=== PATIENT | male | born 1995 | race Native Hawaiian/Other Pacific Islander ===

== ENCOUNTER 2016-09-08 22:52 | Emergency (ER) | payer SELFPAY ==
[~2016-09-08] VITALS: Ht 172.7 cm; Wt 78.0 kg
[2016-09-08 22:54] VITALS: BP 135/84; PULSE 104; RESP 15; TEMP 97.9; O2SAT 98
[2016-09-09 00:55] VITALS: BP 124/84; PULSE 92; RESP 18; O2SAT 99
[2016-09-09 02:11] VITALS: O2SAT 99
[2016-09-09] MEDS ORDERED: SODIUM CHLORIDE 0.9% FLUSH 10 ML FLUSH IVF PRN (02:15)
[2016-09-09] MEDS ORDERED: MORPHINE SULFATE 4 MG/ML INJ IV PUSH ONE (02:15)
[2016-09-09 02:22] LABS: AUTOMATED NEUTROPHIL # 5.5 TH/MM3 (1.8-7.7); BASOPHIL % 0.3 % (0.0-2.0); EOSINOPHIL # 0.2 TH/MM3 (0-0.4); HEMATOCRIT 44.1 % (39.0-51.0); HEMO FLAGS DIFF FINAL; LYMPH % 30.9 % (9.0-44.0); LYMPHOCYTE # 2.9 TH/MM3 (1.0-4.8); MEAN CELL VOLUME 81.8 FL (80.0-100.0); MEAN CORPUSCULAR HEMOGLOBIN 27.9 PG (27.0-34.0); MEAN CORPUSCULAR HGB CONC 34.1 % (32.0-36.0); MONO % 8.1 % (0.0-8.0); NEUT % 58.7 % (16.0-70.0); PLATELET COUNT 297 TH/MM3 (150-450); RED BLOOD COUNT 5.39 MIL/MM3 (4.50-5.90); RED CELL DISTRIBUTION WIDTH 13.3 % (11.6-17.2); WHITE BLOOD COUNT 9.3 TH/MM3 (4.0-11.0)
[2016-09-09 02:45] LABS: ANION GAP 6 MEQ/L (5-15); BICARBONATE 28.2 MEQ/L (21.0-32.0); BLOOD UREA NITROGEN 12 MG/DL (7-18); CHLORIDE 110 MEQ/L (98-107); CREATINE KINASE 84 U/L (39-308); GLOMERULAR FILTRATION RATE 112 ML/MIN (>89); MAGNESIUM 2.2 MG/DL (1.5-2.5); SODIUM (NA) 144 MEQ/L (136-145)
--- NOTE | 2016-09-09 02:54 | RADRPT ---
EXAM DATE/TIME: 09/09/2016 02:25 [place] COMPARISON: No previous studies available for comparison. INDICATIONS : Chest pain. MEDICAL HISTORY : None. SURGICAL HISTORY : None. ENCOUNTER: Initial ACUITY: 1 day PAIN SCORE: 3/10 LOCATION: Bilateral middle chest FINDINGS: A single view of the chest demonstrates the lungs to be symmetrically aerated without evidence of mas s, infiltrate or effusion. The cardiomediastinal contours are unremarkable. Osseous structures are intact. CONCLUSION: No acute disease. Blair Rock MD on September 09, 2016 at 2:53 Board Certified Radiologist. This report was verified electronically.
[2016-09-09] MEDS ORDERED: HYDR-3533 PO (03:33)
--- NOTE | 2016-09-09 03:34 | PD ---
HPI Chief Complaint: Chest Pain Time Seen by Provider: 01:40 Travel History International Travel<30 days: No Contact w/Intl Traveler<30days: No Traveled to known affect area: No History of Present Illness HPI The patient's 20 years old. He arrives with chest pain in the left side. It has been present for 3 days. The onset was gradual arrest. It was intermittent initially. It has been gradually worsening. He reports a cough with phlegm production. He's had no fever. He denies a history of DVT. 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 The pain is present at rest. There is no pleuritic component. He states the severity is 9/10. He has no family history of early onset coronary artery disease or structural heart disease. He reports similar episodes when he was much younger which occurred only very rarely perhaps once every 3 years. He has no past medical history area and he reports a surgical history of tonsillectomy/adenoidectomy [facility] Past Medical History Medical History: Denies Significant Hx Diminished Hearing: No Tetanus Vaccination: Unknown Past Surgical History Eye Surgery: Yes (lasik eye sx) Tonsillectomy: Yes (adnoids) Social History Alcohol Use: No Tobacco Use: Yes (1 ppd) Substance Use: No Allergies-Medications (Allergen,Severity, Reaction): Coded Allergies: No Known Allergies (Unverified , 09/08/16) Reported Meds & Prescriptions Reported Meds & Active Scripts Active No Active Prescriptions or Reported Medications Review of Systems Except as stated in HPI: all other systems reviewed are Neg General / Constitutional: No: Fever Cardiovascular: Positive: Chest Pain or Discomfort Respiratory: Positive: Cough, No: Shortness of Breath Physical Exam Narrative GENERAL: 20-year-old male pleasant no acute distress SKIN: Warm and dry. HEAD: Atraumatic. Normocephalic. EYES: Pupils equal and round. No scleral icterus. No injection or drainage. ENT: No nasal bleeding or discharge. Mucous membranes pink and moist. NECK: Trachea midline. No JVD. CARDIOVASCULAR: Regular rate and rhythm. No murmur appreciated. RESPIRATORY: No accessory muscle use. Clear to auscultation. Breath sounds equal bilaterally. GASTROINTESTINAL: Abdomen soft, non-tender, nondistended. Hepatic and splenic margins not palpable. MUSCULOSKELETAL: No obvious deformities. No clubbing. No cyanosis. No edema. NEUROLOGICAL: Awake and alert. No obvious cranial nerve deficits. Motor grossly within normal limits. Normal speech. PSYCHIATRIC: Appropriate mood and affect; insight and judgment normal. Data Data Last Documented VS Vital Signs Date Time Temp Pulse Resp B/P Pulse Ox O2 Delivery O2 Flow Rate FiO2 09/09/16 02:11 99 09/09/16 02:11 Room Air 09/09/16 00:55 92 18 124/84 09/08/16 22:54 97.9 Vital signs reviewed Orders Electrocardiogram (09/09/16 02:08) Basic Metabolic Panel (Bmp) (09/09/16 02:08) Ckmb (Isoenzyme) Profile (09/09/16 02:08) Complete Blood Count With Diff (09/09/16 02:08) D-Dimer (09/09/16 02:08) Magnesium (Mg) (09/09/16 02:08) Troponin I (09/09/16 02:08) Chest, Single Ap (09/09/16 02:08) Ecg Monitoring (09/09/16 02:08) Bilateral Bp Monitoring (09/09/16 02:08) Iv Access Insert/Monitor (09/09/16 02:08) Oximetry (09/09/16 02:08) Oxygen Administration (09/09/16 02:08) Morphine Inj (Morphine Inj) (09/09/16 02:15) Sodium Chloride 0.9% Flush (Ns Flush) (09/09/16 02:15) Labs Laboratory Tests Test 09/09/16 01:30 White Blood Count 9.3 TH/MM3 Red Blood Count 5.39 MIL/MM3 Hemoglobin 15.1 GM/DL Hematocrit 44.1 % Mean Corpuscular Volume 81.8 FL Mean Corpuscular Hemoglobin 27.9 PG Mean Corpuscular Hemoglobin 34.1 % Concent Red Cell Distribution Width 13.3 % Platelet Count 297 TH/MM3 Mean Platelet Volume 7.7 FL Neutrophils (%) (Auto) 58.7 % Lymphocytes (%) (Auto) 30.9 % Monocytes (%) (Auto) 8.1 % Eosinophils (%) (Auto) 2.0 % Basophils (%) (Auto) 0.3 % Neutrophils # (Auto) 5.5 TH/MM3 Lymphocytes # (Auto) 2.9 TH/MM3 Monocytes # (Auto) 0.7 TH/MM3 Eosinophils # (Auto) 0.2 TH/MM3 Basophils # (Auto) 0.0 TH/MM3 CBC Comment DIFF FINAL Differential Comment D-Dimer Quantitative (PE/DVT) LESS THAN 0.19 MG/L FEU Sodium Level 144 MEQ/L Potassium Level 4.0 MEQ/L Chloride Level 110 MEQ/L Carbon Dioxide Level 28.2 MEQ/L Anion Gap 6 MEQ/L Blood Urea Nitrogen 12 MG/DL Creatinine 0.88 MG/DL Estimat Glomerular Filtration 112 ML/MIN Rate Random Glucose 68 MG/DL Calcium Level 9.2 MG/DL Magnesium Level 2.2 MG/DL Total Creatine Kinase 84 U/L Troponin I LESS THAN 0.02 NG/ML MDM Medical Decision Making Medical Screen Exam Complete: Yes Emergency Medical Condition: Yes Medical Record Reviewed: Yes Differential Diagnosis NSTEMI, unstable angina, coronary vasospasm, PE, PTX, aortic dissection, pericarditis, myocarditis, endocarditis, PNA, esophageal disease, aneurysm, musculoskeletal etiologies, anxiety, cocaine/sympathomimetic abuse Narrative Course EKG reveals a sinus rhythm at 87 bpm, nonspecific ST changes are seen in the V1 through V4 distribution, normal axis Last 24 hours Impressions Chest X-Ray 09/09/16 0208 Signed Impressions: Service Date/Time: August 02:25 - CONCLUSION: No acute disease. Blair Rock MD CBC & BMP Diagram 09/09/16 01:30 Troponin undetectable Overall the presentation is somewhat nonspecific. DVT is considered quite unlikely in the absence of pleuritic pain, shortness of breath tachycardia and hypoxia. Pain controlled. Prescription as below. Diagnosis Primary Impression: Atypical chest pain Referrals: Desirae Canada MD call for appointment Additional Instructions: You have a choice when it comes to health care, and we are glad that you chose [facility]. Hopefully, we have met your expectations on today's visit. You are welcome to return to [facility] at any time, as we are committed to meeting the health care needs of our community. Med/Other Pt SpecificInfo: Prescription(s) given Scripts Hydrocodone-Acetaminophen (Lortab)5-325 Mg Tab1-2 Tab PO Q6H PRN (PAIN SCALE 6 TO 10) #14 TAB Ref 0 Prov:Eduardo Sterling MD 09/09/16 Disposition: 01 DISCHARGE HOME Condition: Stable Eduardo Sterling MD Sep 09, 2016 03:34
--- NOTE | 2016-09-09 13:55 | EKG ---
Date Performed: 09/09/2016 Time Performed: 01:11:54 PTAGE: 20 years EKG: Sinus rhythm POSSIBLE RIGHT VENTRICULAR CONDUCTION DELAY J point elevation likely due to early repolarization BOR DERLINE ECG NO PREVIOUS TRACING DOCTOR: Eliot Simpson Interpretating Date/Time 09/09/2016 13:55:11
== END 2016-09-09 04:01 | disposition home or self-care (01) ==
LOC: NEPE 22:52
DX: R07.89 Other chest pain (principal); R05 Cough; F17.210 Nicotine dependence, cigarettes, uncomplicated; R94.31 Abnormal electrocardiogram [ECG] [EKG]
CPT/HCPCS: 71010; 80048; 82550; 83735; 84484; 85025; 85379; 93005; 96374; 99285; J2270